=== PATIENT | female | born 1935 | race Caucasian/White ===

== ENCOUNTER 2016-06-26 13:31 | Emergency (ER) | payer MEDICARE, OTHER ==
[2016-06-26 13:50] VITALS: BP 159/56
--- NOTE | 2016-06-26 14:38 | RAD ---
HISTORY: Trauma to right scapula COMPARISONS: None VIEWS: 2, frontal and lateral views of the scapula FINDINGS: BONE DENSITY: There is diffuse osteopenia. BONES: There is no displaced fracture. 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 ALIGNMENT: There is no dislocation. SOFT TISSUES: Unremarkable. OTHER FINDINGS: None. IMPRESSION: OSTEOPENIA. NO DISPLACED SCAPULAR FRACTURE. THE DEGREE OF OSTEOPENIA MAY MAKE A NONDISPLACED FRACTURE RADIOGRAPHICALLY OCCULT. IF SYMPTOMS PERSIST, RECOMMEND REPEAT IMAGING.
--- NOTE | 2016-06-26 14:38 | RAD ---
INDICATION: Trauma, right scapular pain. COMPARISON: There are no prior studies available for comparison. TECHNIQUE: Dual-energy PA and lateral views of the chest were obtained. FINDINGS: The heart is within normal limits in size. Mediastinal and hilar contours appear within normal limits. The lungs are hyperinflated. There is mild prominence of the interstitial markings. No focal infiltrate, pleural effusion or pneumothorax is seen. There is an old fracture of the left eighth posterior rib. IMPRESSION: Findings suggestive of COPD, no evidence for acute finding.
--- NOTE | 2016-06-26 14:44 | UC ---
Lyle Cortes Adam, [facility] on 06/26/16 at 1344 . Shoulder Pain HPI - HPI Summary HPI Summary: Nurse's Note: pt fell on her back two weeks ago. has discomfort to rt shoulder blade area. soreness has not changed, has full mobility to rt shoulder it self. Note: 81 year old with pain in the right scapular area after a fall 2 weeks ago. Vital signs are stable. BP is 159/56. Pulse ox 98. Pain is 2/10. Pt has a Hx of HTN. She does not smoke. She does have possible osteoporosis. In Room: Pt c/o aching pain discretely in her right scapula since falling 2 weeks ago. She fell on her back while picking out a [place] [employer]. She denies any decrease in range of motion. She denies any pain in her spine or anywhere else. She decided to come to today because she expected the pain to dissipate by now but it has persisted for 2 weeks. Pt denies any PMHx. FMHx of cardiac disease. - History of Current Complaint Stated Complaint: SHOULDER PAIN Hx Obtained From: Patient Onset/Duration: Sudden Onset, Lasting Weeks, Still Present Timing: Constant Severity Initially: Moderate Severity Currently: Moderate Location Of Pain: Is Discrete @ - Right scapula Pain Intensity: 2 Pain Scale Used: 0-10 Numeric Character: Aching Aggravating Factor(s): Nothing Alleviating Factor(s): Nothing Associated Signs And Symptoms: Positive: Negative - Allergies/Home Medications Allergies/Adverse Reactions: Allergies Allergy/AdvReac Type Severity Reaction Status Date / Time No Known Allergies Allergy Verified 03/29/14 18:35 Home Medications: Home Medications Atorvastatin* [Lipitor 10 MG*] 10 mg PO 06/26/16 [History] Enalapril TAB* [Vasotec TAB*] 10 mg PO DAILY 06/26/16 [History Confirmed ] PMH/Surg Hx/FS Hx/Imm Hx Previously Healthy: Yes - Surgical History Surgical History: None - Family History Known Family History: Positive: Cardiac Disease, Other - Negative FMHx of Breast CA - Social History Occupation: Retired Lives: With Family - Alcohol Use: None Substance Use Type: None Smoking Status (MU): Never Smoked Tobacco Review of Systems Constitutional: Negative Skin: Negative Musculoskeletal: Other: - Right scapula pain All Other Systems Reviewed And Are Negative: Yes Physical Exam Triage Information Reviewed: Yes Appearance: Well-Appearing, No Pain Distress, Well-Nourished Vital Signs: Initial Vital Signs Temp 97.9 F 06/26/16 13:43 Pulse 84 06/26/16 13:43 Resp 16 06/26/16 13:43 BP 159/56 06/26/16 13:43 Pulse Ox 98 06/26/16 13:43 Eyes: Positive: Conjunctiva Clear ENT: Positive: Hearing grossly normal, Pharynx normal, TMs normal. Negative: Muffled/hoarse voice Neck: Positive: Supple, No Lymphadenopathy Respiratory: Positive: Chest non-tender, Lungs clear, Normal breath sounds, No respiratory distress Cardiovascular: Positive: Other: - 2/6 Systolic Ejection Murmur, radiating to both carotid arteries. Abdomen Description: Positive: Nontender, No Organomegaly, Soft Bowel Sounds: Positive: Present Musculoskeletal: Positive: Strength Intact, ROM Intact, Other: - Point tenderness over the right scapula, level of T8, 5 cm lateral to the mid-spine. Neurological: Positive: Alert Psychological: Positive: Age Appropriate Behavior Skin: Negative: rashes Diagnostics - Radiology Scapula X-Ray Radiology Interpretation Completed By: Radiologist - IMPRESSION: OSTEOPENIA. NO DISPLACED SCAPULAR FRACTURE. THE DEGREE OF OSTEOPENIA MAY MAKE A NONDISPLACED FRACTURE RADIOGRAPHICALLY OCCULT. IF SYMPTOMS PERSIST, RECOMMEND REPEAT IMAGING. CXR Radiology Interpretation Completed By: Radiologist - IMPRESSION: Findings suggestive of COPD, no evidence for acute finding. Shoulder Course/Dx - Course Course Of Treatment: In discussion with the patient and her , we decided that she would be comforted by knowing that her scapula is not broken and that her lungs are normal. Assessment/Plan: It is of note that the patient has point tenderness without any rotation or movement. She denies SOB, cough, and fever. - Differential Dx/Diagnosis Differential Diagnosis/HQI/PQRI: Contusion, Fracture (Closed), Other - Pulmonary contusion Provider Diagnoses: Contusion of the right scapula. I discussed this with the patient and her . She will re-check if she has any pulmonary problems and can expect the pain to resolve over the next 4 weeks. She will be evaluated for her cardiac murmur in the next 2 weeks by her private physician. Discharge - Discharge Plan Condition: Stable Disposition: HOME Patient Education Materials: Scapular Fracture (ED), Contusion in Adults (ED), Rib Contusion (ED) Referrals: Catracho Araya MD [Primary Care Provider] - Additional Instructions: WE DISCUSSED: 1. You have a bad bruise of your scapula but it's not broken and your ribs and lung are not injured. 2. Watch for any increasing shortness of breath, temperature, or new cough. Re check because this would suggest you have a lung infection. 3. Your pain will slowly go away over the next 4 weeks. 4. Ibuprofen and acetaminophen can help. Also, warm moist heat to the area in the morning when you first get up to loosen up you muscles. 5. Use ice to area during the day if it is painful after use. The documentation as recorded by the Lyle mckinney Adam accurately reflects the service I personally performed and the decisions made by me, Shayne Reza MD.
== END 2016-06-26 14:46 | disposition home or self-care (01) ==
LOC: UCEAST 13:31
DX: S40.011A Contusion of right shoulder, initial encounter (principal); W19.XXXA Unspecified fall, initial encounter; Y93.89 Activity, other specified; Y92.9 Unspecified place or not applicable; M85.88 Other specified disorders of bone density and structure, other site
CPT/HCPCS: 71020; 99211; G0463

== ENCOUNTER 2020-11-28 17:18 | Inpatient (IN) ==
[2020-11-28] MEDS ORDERED: NS 0.9% 1000 ml BAG 1,000 ML IV ONE ×2 (17:23→19:54)
[2020-11-28 18:36] LABS: ABS Basophils 0.1 10^3/ul (0-0.2); ABS Lymphocytes 0.6 10^3/ul (1.0-4.8); ABS Monocytes 1.3 10^3/ul (0-0.8); Hematocrit 40 % (35-47); Hemoglobin 13.6 g/dL (12.0-16.0); Lymphocyte % 4.6 %; Mean Corpuscular HGB Conc 34 g/dL (31-36); Mean Corpuscular Hemoglobin 33 pg (27-31); Mean Corpuscular Volume 97 fL (80-97); Mean Platelet Volume 11.1 fL (7.4-10.4); Platelet Count 134 10^3/uL (150-450); Red Blood Count 4.17 10^6 /uL (3.70-4.87); Red Cell Distribution Width 15 % (10-15)
[2020-11-28] MEDS: cefTRIAXone 1 gm/50 mL NS BAG 1 GM/50 ML BAG IV ONE ×2 (18:51→19:28)
[2020-11-28 19:02] LABS: Albumin 3.9 g/dL (3.2-5.2); Albumin/Globulin Ratio 1.1 (1-3); C Reactive Protein 152.25 mg/L (<8.01); Calcium 9.4 mg/dL (8.6-10.3); EGFR African American 88.7 (>60); EGFR Non-African American 73.3 (>60); Globulin 3.5 g/dL (2-4); Potassium 3.8 mmol/L (3.5-5.0); Total Bilirubin 1.3 mg/dL (0.2-1.0); Total Protein 7.4 g/dL (6.4-8.9)
[2020-11-28 19:19] LABS: Urine Appearance Clear; Urine Bilirubin Negative (Negative); Urine Blood 2+ (Negative); Urine Color Yellow; Urine Glucose Negative (Negative); Urine Ketones Trace (Negative); Urine Nitrite Negative (Negative); Urine Protein 1+(30 mg/dL) (Negative); Urine Specific Gravity 1.021 (1.002-1.030); Urine Urobilinogen Negative (Negative)
[2020-11-28 19:24] LABS: Urine Bacteria Absent (Absent); Urine Red Blood Cell 3+(>10/hpf) (Absent); Urine Squamous Epithelial Cell Present (Absent); Urine White Blood Cell Trace(0-5/hpf) (Absent)
[2020-11-28] MEDS ORDERED: Ondansetron 4 mg VIAL 2 MG/ML 2 ml VIAL IV PRN (22:20)
[2020-11-28] MEDS ORDERED: Alendronate 70 mg TAB (NF) PO SCH (23:00)
[2020-11-29] MEDS: NS 0.9% 1000 ml BAG 1,000 ML IV SCH ×2 (02:58→20:55)
[2020-11-29] MEDS ORDERED: Heparin 5000 UNITS/ML 1 mL VIAL SUBCUT SCH (06:00)
[2020-11-29] MEDS: Enoxaparin 40 MG/0.4 ML SYR SUBCUT SCH (09:02)
[2020-11-29] MEDS: DOXYcycline 100 MG in NS 0.9% 250 ml 250 ML IVPB SCH ×2 (09:03→21:35)
[2020-11-29] MEDS ORDERED: Polyethylene Glycol 3350 17 GM PACKET PO PRN (09:13)
[2020-11-29] MEDS ORDERED: Senna TAB 8.6 mg TAB PO PRN (09:13)
[2020-11-29] MEDS ORDERED: Magnesium Hydroxide LIQ 30 ML UDC PO PRN (09:13)
[2020-11-29 09:48] LABS: ABS Monocytes 1.4 10^3/ul (0-0.8); Hematocrit 36 % (35-47); Hemoglobin 12.1 g/dL (12.0-16.0); Lymphocyte % 8.8 %; Mean Corpuscular HGB Conc 34 g/dL (31-36); Mean Corpuscular Hemoglobin 33 pg (27-31); Mean Corpuscular Volume 97 fL (80-97); Mean Platelet Volume 11.1 fL (7.4-10.4); Platelet Count 122 10^3/uL (150-450); Red Blood Count 3.74 10^6 /uL (3.70-4.87); Red Cell Distribution Width 15 % (10-15); White Blood Count 11.4 10^3/uL (3.5-10.8)
[2020-11-29 10:08] LABS: Calcium 8.5 mg/dL (8.6-10.3); EGFR Non-African American 83.5 (>60); Magnesium 1.8 mg/dL (1.9-2.7); Potassium 3.7 mmol/L (3.5-5.0)
[2020-11-29 10:54] LABS: Urine Appearance Clear; Urine Bilirubin Negative (Negative); Urine Blood 2+ (Negative); Urine Color Yellow; Urine Glucose Negative (Negative); Urine Ketones 1+ (Negative); Urine Nitrite Negative (Negative); Urine Protein 1+(30 mg/dL) (Negative); Urine Specific Gravity 1.019 (1.002-1.030); Urine Urobilinogen Negative (Negative)
[2020-11-29 11:02] LABS: Urine Bacteria Absent (Absent); Urine Red Blood Cell 3+(>10/hpf) (Absent); Urine White Blood Cell Trace(0-5/hpf) (Absent)
[2020-11-29] MEDS: cefTRIAXone 1 gm/50 mL NS BAG 1 GM/50 ML BAG IVPB SCH (20:54)
[2020-11-30 06:12] LABS: Hematocrit 37 % (35-47); Hemoglobin 12.5 g/dL (12.0-16.0); Mean Corpuscular HGB Conc 34 g/dL (31-36); Mean Corpuscular Hemoglobin 33 pg (27-31); Mean Corpuscular Volume 97 fL (80-97); Mean Platelet Volume 11.2 fL (7.4-10.4); Platelet Count 124 10^3/uL (150-450); Red Blood Count 3.82 10^6 /uL (3.70-4.87); Red Cell Distribution Width 15 % (10-15); White Blood Count 10.5 10^3/uL (3.5-10.8)
[2020-11-30 06:30] LABS: C Reactive Protein 194.35 mg/L (<8.01); Calcium 8.5 mg/dL (8.6-10.3); EGFR African American 110.4 (>60); EGFR Non-African American 91.3 (>60); Magnesium 1.7 mg/dL (1.9-2.7); Potassium 3.4 mmol/L (3.5-5.0)
[2020-11-30] MEDS ORDERED: Magnesium Sulfate 2 gm BAG 2 GM/50 ML BAG IVPB ONE (07:06)
[2020-11-30 08:03] LABS: ABS Lymphocytes 1.2 10^3/ul (1.0-4.8); ABS Monocytes 1.1 10^3/ul (0-0.8); ABS Neutrophils 8.1 10^3/ul (1.5-7.7); Eosinophil % 0.2 %
[2020-11-30] MEDS: DOXYcycline 100 MG in NS 0.9% 250 ml 250 ML IVPB SCH ×2 (09:09→20:45)
[2020-11-30] MEDS: Enoxaparin 40 MG/0.4 ML SYR SUBCUT SCH (10:48)
[2020-11-30] MEDS: KCL 20 MEQ/100 ML IVPREMIX 20 MEQ/100 ML BAG IV SCH ×2 (10:48→13:14)
[2020-11-30] MEDS: NS 0.9% 1000 ml BAG 1,000 ML IV SCH (13:14)
[2020-11-30] MEDS: cefTRIAXone 1 gm/50 mL NS BAG 1 GM/50 ML BAG IVPB SCH (22:59)
[2020-12-01 05:07] LABS: Hematocrit 37 % (35-47); Hemoglobin 12.4 g/dL (12.0-16.0); Mean Corpuscular HGB Conc 34 g/dL (31-36); Mean Corpuscular Hemoglobin 33 pg (27-31); Mean Corpuscular Volume 98 fL (80-97); Mean Platelet Volume 11.6 fL (7.4-10.4); Platelet Count 140 10^3/uL (150-450); Red Cell Distribution Width 14 % (10-15); White Blood Count 10.7 10^3/uL (3.5-10.8)
[2020-12-01 05:10] LABS: ABS Eosinophils 0.1 10^3/ul (0-0.6); ABS Neutrophils 8.6 10^3/ul (1.5-7.7); Eosinophil % 0.8 %; Lymphocyte % 9.2 %
[2020-12-01 05:21] LABS: Calcium 8.3 mg/dL (8.6-10.3); EGFR African American 114.7 (>60); EGFR Non-African American 94.8 (>60); Magnesium 1.9 mg/dL (1.9-2.7); Potassium 3.6 mmol/L (3.5-5.0)
[2020-12-01] MEDS: NS 0.9% 1000 ml BAG 1,000 ML IV SCH (10:13)
[2020-12-01] MEDS: Enoxaparin 40 MG/0.4 ML SYR SUBCUT SCH (10:14)
[2020-12-01] MEDS: DOXYcycline 100 MG in NS 0.9% 250 ml 250 ML IVPB SCH ×2 (10:14→23:41)
[2020-12-01] MEDS: cefTRIAXone 1 gm/50 mL NS BAG 1 GM/50 ML BAG IVPB SCH (21:47)
[2020-12-02] MEDS: NS 0.9% 1000 ml BAG 1,000 ML IV SCH (02:21)
[2020-12-02 05:45] LABS: Hematocrit 35 % (35-47); Hemoglobin 11.6 g/dL (12.0-16.0); Mean Corpuscular HGB Conc 34 g/dL (31-36); Mean Corpuscular Hemoglobin 33 pg (27-31); Mean Corpuscular Volume 98 fL (80-97); Mean Platelet Volume 11.4 fL (7.4-10.4); Platelet Count 146 10^3/uL (150-450); Red Blood Count 3.53 10^6 /uL (3.70-4.87); Red Cell Distribution Width 15 % (10-15); White Blood Count 9.8 10^3/uL (3.5-10.8)
[2020-12-02 06:09] LABS: Albumin 2.8 g/dL (3.2-5.2); Albumin/Globulin Ratio 1.1 (1-3); C Reactive Protein 135.43 mg/L (<8.01); Calcium 8.3 mg/dL (8.6-10.3); EGFR African American 129.5 (>60); Globulin 2.6 g/dL (2-4); Potassium 3.6 mmol/L (3.5-5.0); Total Bilirubin 0.7 mg/dL (0.2-1.0); Total Protein 5.4 g/dL (6.4-8.9)
[2020-12-02 08:29] LABS: Large Platelets Present
[2020-12-02] MEDS: DOXYcycline 100 MG in NS 0.9% 250 ml 250 ML IVPB SCH (10:52)
[2020-12-02] MEDS: Enoxaparin 40 MG/0.4 ML SYR SUBCUT SCH (12:29)
[2020-12-03] MEDS: Enoxaparin 40 MG/0.4 ML SYR SUBCUT SCH (08:33)
[2020-12-03 23:57] LABS: Urine Appearance Clear; Urine Bilirubin Negative (Negative); Urine Blood Negative (Negative); Urine Color Yellow; Urine Glucose Negative (Negative); Urine Ketones Trace (Negative); Urine Nitrite Negative (Negative); Urine Protein 1+(30 mg/dL) (Negative); Urine Urobilinogen Negative (Negative)
[2020-12-03 23:59] LABS: Urine Bacteria Absent (Absent); Urine Red Blood Cell 2+(6-10/hpf) (Absent); Urine Squamous Epithelial Cell Present (Absent); Urine White Blood Cell Trace(0-5/hpf) (Absent)
[2020-12-04] MEDS: Enoxaparin 40 MG/0.4 ML SYR SUBCUT SCH (08:54)
[2020-12-04] MEDS ORDERED: Atropine 1% (ORAL/SL) 15 ML BTL SL PRN (22:08)
[2020-12-04] MEDS ORDERED: Morphine ORAL CONCENTRATE 5 MG/0.25 ML ORAL.SYRIN SL PRN (22:08)
[2020-12-06 10:23] VITALS: BP 109/43
== END 2020-12-06 17:23 | disposition hospice, home (50) | DRG 871 ==
LOC: ED 17:18 → MEDTELE 22:16
PROVIDERS: ADMIT Internal Medicine; ATTEND Internal Medicine